=== PATIENT | female | born 1975 | race Caucasian/White ===

== ENCOUNTER → 2023-08-27 | Outpatient (CLI) | LOC: M SOG 13:23 | PROVIDERS: ATTEND Physician Assistant | DX: M25.542 Pain in joints of left hand (principal); M25.541 Pain in joints of right hand ==

== ENCOUNTER → 2024-01-25 | Day surgery (SDC) | payer BC ==
[~2024-01-25] VITALS: Ht 172.7 cm; Wt 77.6 kg
[~2024-01-25] MED LIST: BACITRACIN OINTMENT 30GM TUBE As Ordered ONE; FERR325T81 PO; HYOS1TAB PO; LIDOCAINE 1% MDV 20ML VIAL XX ONE; SODIUM BICARBONATE 8.4% INJ 50MEQ 50ML VIAL XX ONE; THERTAB52 PO
[2024-01-25 09:34] VITALS: BP 122/70; TEMP 97.1; O2SAT 99
== END | disposition home or self-care (01) ==
LOC: M SDC 07:22
PROVIDERS: ATTEND Orthopaedic Surgery Hand Surgery
DX: R22.32 Localized swelling, mass and lump, left upper limb (principal)